=== PATIENT | female | born 1980 ===

== ENCOUNTER 2023-09-11 11:41 | Day surgery (SDC) | payer OTHER ==
[2023-08-29 12:10] LABS: HEMATOCRIT 36.9 % (36.0-45.00); HEMOGLOBIN 12.3 g/dL (12.0-15.00); MEAN CELL VOLUME 88.6 fL (80.00-100.00); MEAN CORPUSCULAR HEMOGLOBIN 29.6 pg (27.00-32.0); MEAN CORPUSCULAR HGB CONC 33.4 g/dl (32.0-36.0); RED BLOOD COUNT 4.17 M/uL (4.00-6.00); RED CELL DISTRIBUTION WIDTH 13.9 % (11.5-14.5)
[2023-08-29 12:31] LABS: INR 1.04; PARTIAL THROMBOPLASTIN TIME 25.9 SECONDS (22.0-34.0); PROTHROMBIN TIME 10.9 SECONDS (9.0-11.5)
[2023-08-29 12:37] LABS: BILIRUBIN TOTAL 0.3 mg/dL (0.3-1.2); CALCIUM 9.2 mg/dL (8.5-10.1); CREATININE SERUM 0.59 mg/dL (0.55-1.02); GFR 112.32; GLOBULINA 3.8 G/DL (2.4-3.5); POTASSIUM 3.74 mEq/L (3.5-5.1); TOTAL PROTEIN 7.8 gm/dL (6.4-8.2)
[2023-08-29 12:41] LABS: PLATELET COUNT 242 K/uL (150-450)
[~2023-09-11] VITALS: Ht 180.3 cm; Wt 94.8 kg
[~2023-09-11 11:41] MED LIST: SYNTHROID150 MCG PO
[2023-09-11] MEDS ORDERED: POVIDONE-IODINE 118 ML BOTT TOP ONE (18:00)
== END 2023-09-12 00:05 | disposition home or self-care (01) ==
LOC: CIR.AMB 11:41
PROVIDERS: ATTEND Obstetrics & Gynecology
DX: N84.1 Polyp of cervix uteri (principal); N93.8 Other specified abnormal uterine and vaginal bleeding